=== PATIENT | male | born 1970 | race African-American/Black ===

== ENCOUNTER 2019-08-22 13:57 | Emergency (ER) | payer OTHER ==
--- NOTE | 2019-08-22 14:25 | EDM.PDOC ---
ED HPI GENERAL MEDICAL PROBLEM - General Chief Complaint: General Stated Complaint: RIB INJURY Time Seen by Provider: 08/22/19 14:02 Source of Information: Reports: Patient History Limitations: Reports: No Limitations - History of Present Illness INITIAL COMMENTS - FREE TEXT/NARRATIVE: HISTORY AND PHYSICAL: History of present illness: Patient is a 49-year-old male who presents to the ED today via private vehicle and ambulate into the ED today with concern of left-sided rib injury, neck pain , and headache after a fall that occurred just prior to arrival to the ED. 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 Patient states he slipped while standing in the truck bed and landed on his left side in the truck bed but hit his left ribs. Patient states he did not hit his head and did not lose consciousness but usually is having neck pain and headache after the incident. Patient states he has not taken anything for his symptoms. Patient states he has had prior broken ribs on the left side. Patient denies taking any blood thinners including daily aspirin Patient denies fever, chills, chest pain, shortness of breath, or cough. Denies neck stiff ness, change in vision, syncope, or near syncope. Denies nausea, vomiting, abdominal pain, diarrhea, constipation, or dysuria. Has not noted any blood in urine or stool. Patient has been eating and drinking appropriately. Review of systems: As per history of present illness and below otherwise all systems reviewed and negative. Past medical history: As per history of present illness and as reviewed below otherwise noncontributory. Surgical history: As per history of present illness and as reviewed below otherwise noncontributory. Social history: See social history for further information Family history: As per history of present illness and as reviewed below otherwise noncontributory. Physical exam: General: Patient is alert, oriented, and in no acute distress. Patient sitting comfortably on exam table. HEENT: Atraumatic, normocephalic, pupils equal and reactive bilaterally, negative for conjunctival pallor or scleral icterus, mucous membranes moist, TMs normal bilaterally, throat clear, neck supple, nontender, trachea midline. No drooling or trismus noted. No meningeal signs. No hot potato voice noted. Lungs: Clear to auscultation, breath sounds equal bilaterally. Mild tenderness to palpation of left sided ribs #7-10 without guarding. Heart: S1S2, regular rate and rhythm without overt murmur Abdomen: Soft, nondistended, nontender. Negative for masses or hepatosplenomegaly. Negative for costovertebral tenderness. Pelvis: Stable nontender. Genitourinary: Deferred. Rectal: Deferred. Skin: Intact, warm, dry. No lesions or rashes noted. Extremities: Atraumatic, negative for cords or calf pain. Neurovascular unremarkable. No obvious deformity of the complete spine. No step-offs, crepitus , or point tenderness to palpation of the complete spine. Neuro: Awake, alert, oriented. Cranial nerves II through XII unremarkable. Cerebellum unremarkable. Motor and sensory unremarkable throughout. Exam nonfocal. Notes: Discussed the importance for follow-up with the primary care provider. Voices understanding and is agreeable to plan of care. Denies any further questions or concerns at this time. Diagnostics: Head CT, cervical spine CT, rib with CXR, EKG, CBC, CMP, UA, troponin, lipase Therapeutics: None Prescription: None Impression: Left sided rib pain Neck pain Plan: 1. Rest, ice, elevate the affected areas. You can apply ice and or heat 15 minutes on, 15 minutes off. 2. Tylenol or ibuprofen as directed for pain management or discomfort. Take medication as prescribed. 3. Follow up with the primary care provider as discussed. Return to the ED as needed and as discussed. Definitive disposition and diagnosis as appropriate pending reevaluation and review of above. Left Rib Cage and Neck Pain Score (Numeric/FACES): 7 - Related Data Allergies Allergy/AdvReac Type Severity Reaction Status Date / Time amoxicillin Allergy Shortness Verified 08/22/19 14:16 of Breath doxycycline Allergy Rash Verified 08/22/19 14:16 ketorolac [From Toradol] Allergy Swelling Verified 08/22/19 14:16 Home Meds: Home Meds Citalopram [Citalopram HBr] 20 mg PO DAILY 08/22/19 [History] ED ROS GENERAL - Review of Systems Review Of Systems: Comprehensive ROS is negative, except as noted in HPI. ED EXAM, GENERAL - Physical Exam Exam: See Below (see dictation) Course - Vital Signs Last Recorded V/S: Last Vital Signs Temp 98.1 F 08/22/19 14:17 Pulse 79 08/22/19 14:17 Resp 18 08/22/19 14:17 BP 122/72 08/22/19 14:17 Pulse Ox 95 08/22/19 14:17 - Orders/Labs/Meds Orders: Active Orders 24 hr Category Date Time Status EKG Documentation Completion [RC] STAT Care 08/22/19 14:16 Active Labs: Laboratory Tests 08/22/19 08/22/19 08/22/19 Range/Units 14:40 14:40 14:45 WBC 6.42 (4.0-11.0) K/uL RBC 4.54 (4.50-5.90) M/uL Hgb 13.9 (13.0-17.0) g/dL Hct 37.6 L (38.0-50.0) % MCV 82.8 (80.0-98.0) fL MCH 30.6 (27.0-32.0) pg MCHC 37.0 (31.0-37.0) g/dL RDW Std Deviation 44.2 (28.0-62.0) fl RDW Coeff of [place] 15 (11.0-15.0) % Plt Count 173 (150-400) K/uL MPV 11.20 (7.40-12.00) fL Neut % (Auto) 30.5 L (48.0-80.0) % Lymph % (Auto) 58.4 H (16.0-40.0) % [place] % (Auto) 8.6 (0.0-15.0) % Eos % (Auto) 2.2 (0.0-7.0) % Baso % (Auto) 0.3 (0.0-1.5) % Neut # (Auto) 2.0 (1.4-5.7) K/uL Lymph # (Auto) 3.8 H (0.6-2.4) K/uL [place] # (Auto) 0.6 (0.0-0.8) K/uL Eos # (Auto) 0.1 (0.0-0.7) K/uL Baso # (Auto) 0.0 (0.0-0.1) K/uL Nucleated RBC % 0.0 /100WBC Nucleated RBCs # 0 K/uL Sodium 141 (136-148) mmol/L Potassium 4.1 (3.5-5.1) mmol/L Chloride 104 (98-107) mmol/L Carbon Dioxide 28.9 (21.0-32.0) mmol/L BUN 15 (7.0-18.0) mg/dL Creatinine 1.2 (0.8-1.3) mg/dL Est Cr Clr Drug Dosing 70.46 mL/min Estimated GFR (MDRD) > 60.0 ml/min Glucose 79 (74-106) mg/dL Calcium 8.7 (8.5-10.1) mg/dL Total Bilirubin 0.3 (0.2-1.0) mg/dL AST 18 (15-37) IU/L ALT 26 (14-63) IU/L Alkaline Phosphatase 57 (46-116) U/L Troponin I < 0.050 (0.000-0.056) ng/mL Total Protein 7.2 (6.4-8.2) g/dL Albumin 3.8 (3.4-5.0) g/dL Globulin 3.4 (2.6-4.0) g/dL Albumin/Globulin Ratio 1.1 (0.9-1.6) Lipase 105 (73-393) U/L Urine Color YELLOW Urine Appearance CLEAR Urine pH 7.0 (5.0-8.0) Ur Specific [place] 1.020 (1.001-1.035) Urine Protein NEGATIVE (NEGATIVE) mg/dL Urine Glucose (UA) NEGATIVE (NEGATIVE) mg/dL Urine Ketones NEGATIVE (NEGATIVE) mg/dL Urine Occult Blood NEGATIVE (NEGATIVE) Urine Nitrite NEGATIVE (NEGATIVE) Urine Bilirubin NEGATIVE (NEGATIVE) Urine Urobilinogen 0.2 (<2.0) EU/dL Ur Leukocyte Esterase NEGATIVE (NEGATIVE) Departure - Departure Time of Disposition: 15:34 Disposition: Home, Self-Care 01 Clinical Impression: Rib pain, Neck pain - Discharge Information Referrals: PCP,Unknown [Primary Care Provider] - Forms: ED Department Discharge Additional Instructions: The following information is given to patients seen in the emergency department who are being discharged to home. This information is to outline your options for follow-up care. We provide all patients seen in our emergency department with a follow-up referral. The need for follow-up, as well as the timing and circumstances, are variable depending upon the specifics of your emergency department visit. If you don't have a primary care physician on staff, we will provide you with a referral. We always advise you to contact your personal physician following an emergency department visit to inform them of the circumstance of the visit and for follow-up with them and/or the need for any referrals to a consulting specialist. The emergency department will also refer you to a specialist when appropriate. This referral assures that you have the opportunity for follow-up care with a specialist. All of these measure are taken in an effort to provide you with optimal care, which includes your follow-up. Under all circumstances we always encourage you to contact your private physician who remains a resource for coordinating your care. When calling for follow-up care, please make the office aware that this follow-up is from your recent emergency room visit. If for any reason you are refused follow-up, please contact the [facility] Emergency Department at and asked to speak to the emergency department charge nurse. [facility] [address] [place] [address] [place] [address] 1. Rest, ice, elevate the affected areas. You can apply ice and or heat 15 minutes on, 15 minutes off. 2. Tylenol or ibuprofen as directed for pain management or discomfort. Take medication as prescribed. 3. Follow up with the primary care provider as discussed. Return to the ED as needed and as discussed. Sepsis Event Note - Evaluation Sepsis Screening Result: No Definite Risk - Focused Exam Vital Signs: Vital Signs Temp Pulse Resp BP Pulse Ox 08/22/19 14:17 98.1 F 79 18 122/72 95 Date Exam was Performed: 08/22/19 Time Exam was Performed: 15:34 - My Orders Last 24 Hours: My Active Orders 08/22/19 14:16 EKG Documentation Completion [RC] STAT - Assessment/Plan Last 24 Hours: My Active Orders 08/22/19 14:16 EKG Documentation Completion [RC] STAT
[2019-08-22 15:17] LABS: BLOOD UREA NITROGEN,BUN 15 mg/dL (7.0-18.0); CARBON DIOXIDE,CO2 28.9 mmol/L (21.0-32.0); CHLORIDE,CL 104 mmol/L (98-107); GLUCOSE RANDOM 79 mg/dL (74-106); LIPASE 105 U/L (73-393); POTASSIUM,K 4.1 mmol/L (3.5-5.1); SODIUM,NA 141 mmol/L (136-148)
--- NOTE | 2019-08-22 15:29 | CR ---
Chest and left ribs: Frontal view of the chest was obtained as well as four views left ribs. Comparison: No prior chest or rib study. Heart size and mediastinum are normal. Lungs are clear. Deformity is noted within the left 9th and 10th ribs as well as 8th rib. Uncertain if these are acute or represent old healing rib fractures. No additional rib abnormality is appreciated. Impression: 1. Deformity of three mid left ribs. As mentioned above, uncertain if these are acute or old. Please correlate with patient's symptoms. 2. No additional rib abnormality is appreciated. 3. Nothing acute is seen on frontal chest x-ray. Diagnostic code #3 This report was dictated in [place] Standard Time MTDD
--- NOTE | 2019-08-22 15:30 | CT ---
Head CT Technique: Multiple axial sections through the brain were obtained. Intravenous contrast was not utilized. Comparison: No prior intracranial imaging. Findings: Ventricles along with basal cisterns and sulci over the convexities appear within normal limits for the patient's age. No abnormal parenchymal densities are seen. No evidence of intracranial hemorrhage. No midline shift or mass effect is seen. Bone window settings were reviewed which shows no acute calvarial abnormality. Mastoid sinuses are clear. Mild mucosal thickening is seen within the anterior right ethmoid and frontal sinus. No air-fluid level is seen within the visualized sinuses. Impression: 1. Slight sinus findings most likely chronic. 2. No acute intracranial abnormality is appreciated. Diagnostic code #2 This report was dictated in [place] Standard Time MTDD
--- NOTE | 2019-08-22 15:31 | CT ---
CT cervical spine Technique: Multiple axial sections through the cervical spine were obtained. Reconstructed sagittal and coronal images were reviewed. Comparison: No prior cervical spine imaging. Findings: Severe disc space narrowing at C5-C6 with posterior osteophytes. Mild disc space narrowing is noted at C6-7 and C7-T1 as well as C3-4. Vertebral body heights are maintained. Mild degenerative apophyseal change is scattered throughout the cervical spine and upper thoracic spine. Vacuum disc phenomena is seen within the L5-S1 disc. No fracture is identified. Mild right sided neural foraminal stenosis is noted at C5-6. Other neural foramina are patent. No abnormal subluxation is seen. Slight thoracic scoliosis is noted. Mild spurring is noted within the uncovertebral joints at C5-6 and minimally at C6-7. Impression: 1. Degenerative change as noted above. 2. Nothing acute is identified. Diagnostic code #2 This report was dictated in [place] Standard Time MTDD
== END 2019-08-22 15:45 | disposition home or self-care (01) ==
LOC: MW.ED 13:57
DX: R07.81 Pleurodynia (principal); M54.2 Cervicalgia; Z88.1 Allergy status to other antibiotic agents; Z88.8 Allergy status to other drugs, medicaments and biological substances
CPT/HCPCS: 36415; 70450; 70450-26; 71101-26-LT; 71101-LT; 72125; 72125-26; 80053; 81003; 83690; 84484; 85025; 93005; 99284; 99284-25

== ENCOUNTER 2019-09-09 10:34 | Emergency (ER) | payer OTHER ==
--- NOTE | 2019-09-09 11:16 | EDM.PDOC ---
ED HPI GENERAL MEDICAL PROBLEM - General Chief Complaint: Back Pain or Injury Stated Complaint: LOW BACK PAIN Time Seen by Provider: 09/09/19 10:46 - History of Present Illness INITIAL COMMENTS - FREE TEXT/NARRATIVE: HPI 49-year-old male smoker presents for evaluation of gradual onset bilateral paraspinal lumbar pain that began after standing from a bent over position while detailing a car yesterday. Pain is worsened by lower back extension/ flexion movements, relieved by rest. Patient reports that feels like a muscle cramp, has been refractory to ibuprofen and acetaminophen. Patient denies a history of recent trauma, fevers, chills, unexpected weight loss, decreased perineal sensation when toileting, difficulty urinating or incontinence, morning stiffness, IV drug use, alcoholism, recent invasive medical procedures, presyncope, abdominal pain, or dysuria. Anticoagulation: denies anticoagulation and Plavix, denies stents. M/S/F/SocHx notable for: please see HPI; remainder reviewed with patient and in chart. ROS: Negative constitutional, eye, cardiovascular, pulmonary, GI, , MSK, skin , neurologic, psychiatric, endocrine unless noted in the HPI. Exam HR 72, RR 18, BP 121/72, T 35.9C, SaO2 97% on room air. Gen: Pleasant, non-toxic appearing, resting comfortably. HEENT: NC, AT, PEERL, EOMI. Resp: clear to auscultation bilaterally. Card: RRR GI: ND, non-tender to palpation, no palpable midline masses, no palpable midline pulsatility. : No CVA tenderness bilaterally. MSK: No visible deformities, strength and tone WNL. No lower thoracic or lumbar spinal TTP, step offs or deformities. No paraspinal TTP. Skin: Normal color with no visible lesions. Neuro: alert and oriented 3, no facial asymmetry, vision and hearing WNL. Straight leg raise test - negative right, negative left. BLE distal sensation intact, 5/5 dorsiflexion / plantarflexion bilaterally. Gait: normal, narrow based gait, able to walk unassisted and stand on heels and toes with full apparent strength. Psych: Mood and affect appropriate. Focused Aortic Ultrasound Indication: Back PainAbdominal Pain Exam type (limited): Initial Views obtained: Transverse proximal aorta, Transverse mid aorta , Transverse distal aorta and Sagittal view aorta. Findings/Interpretation: No evidence of AAA in visualized areas of aorta AAA visualized: greatest measurement in transverse diameter: 1.82 cm at the proximal /mid/distal aorta. MDM Previous chart, nursing note, and vitals reviewed. A: 49-year-old male smoker presents for evaluation of gradual onset bilateral paraspinal lumbar pain that began after standing from a bent over position while detailing a car yesterday. DDx: muscle strain, muscle spasm, sciatica, lumbar radiculopathy, cauda equina syndrome, spinal cord abscess, vertebral osteomyelitis, vertebral diskitis, fracture, seronegative spondyloarthropathy, abdominal aortic aneurysm, abdominal aortic dissection, spontaneous hematoma, malignant spinal cord compression. Evaluation: * Cauda equina - consider unlikely given normal perineal sensation, lack of incontinence or urinary retention. * Infection - abscess, vertebral osteomyelitis, and diskitis are unlikely as the patient is immunocompetent and is with an absence of infectious signs and risk factors on ROS, and a lack of point tenderness. * Fracture - doubt given the absence of spinal TTP and lack of prior trauma * Seronegative spondyloarthropathy - unlikely, no further evaluation currently indicated given the absence of morning stiffness and negative RA, psoriatic arthritis, and autoimmune disease history. * AAA or Dissection - bedside ultrasound without evidence of clinically significant dilation, dissection was considered, but given the lack of abdominal pain, presyncope, and a strong alternative diagnosis, further evaluation is not currently indicated. * Spinal Metastases - given the unremarkable ROS, absence of point spinal tenderness on exam and the lack of discernible neurological deficit, no further testing regarding this etiology is currently indicated. * Consider muscle strain to be the most likely cause of the patients symptoms. Counseled patient regarding natural course of muscular skeletal back pain, given return to care instructions, and recommendation for primary care physician follow up. Discharged with RX for Flexeril instructions to take ibuprofen and acetaminophen. Impression: Back Pain. lower back Pain Score (Numeric/FACES): 7 - Related Data Allergies Allergy/AdvReac Type Severity Reaction Status Date / Time amoxicillin Allergy Shortness Verified 09/09/19 10:44 of Breath doxycycline Allergy Rash Verified 09/09/19 10:44 ketorolac [From Toradol] Allergy Swelling Verified 09/09/19 10:44 Home Meds: Home Meds Citalopram [Citalopram HBr] 20 mg PO DAILY 08/22/19 [History] Cyclobenzaprine [Flexeril] 5 mg PO TID PRN #12 tab 09/09/19 [Rx] Past Medical History HEENT History: Reports: None Cardiovascular History: Reports: None Respiratory History: Reports: COPD Gastrointestinal History: Reports: None Genitourinary History: Reports: None Musculoskeletal History: Reports: Arthritis Neurological History: Reports: None Psychiatric History: Reports: Anxiety, Depression Endocrine/Metabolic History: Reports: None Hematologic History: Reports: None Immunologic History: Reports: None Oncologic (Cancer) History: Reports: None Dermatologic History: Reports: None - Past Surgical History Head Surgeries/Procedures: Reports: None HEENT Surgical History: Reports: None Cardiovascular Surgical History: Reports: None Respiratory Surgical History: Reports: None GI Surgical History: Reports: None Male Surgical History: Reports: None Endocrine Surgical History: Reports: None Neurological Surgical History: Reports: None Musculoskeletal Surgical History: Reports: None Oncologic Surgical History: Reports: None Dermatological Surgical History: Reports: None Social & Family History - Family History Family Medical History: Noncontributory - Tobacco Use Smoking Status *Q: Current Every Day Smoker Years of Tobacco use: 29 Packs/Tins Daily: 0.5 - Caffeine Use Caffeine Use: Reports: Coffee, Tea - Recreational Drug Use Recreational Drug Use: No ED ROS GENERAL - Review of Systems Review Of Systems: See Below ED EXAM, GENERAL - Physical Exam Exam: See Below Course - Vital Signs Last Recorded V/S: Last Vital Signs Temp 35.9 C 09/09/19 10:46 Pulse 72 09/09/19 10:46 Resp 18 09/09/19 10:46 BP 121/72 09/09/19 10:46 Pulse Ox 97 09/09/19 10:46 Departure - Departure Time of Disposition: 11:14 Disposition: Home, Self-Care 01 Clinical Impression: Back pain - Discharge Information Prescriptions: Cyclobenzaprine [Flexeril] 5 mg PO TID PRN #12 tab PRN Reason: pain Referrals: Gio Malin NP [Primary Care Provider] - Additional Instructions: You were in seen in the [facility] Emergency Department for evaluation of back pain. Please read and follow all of the instructions below. Please follow up with your primary care physician in 4-5 days if you still have symptoms. When calling for follow-up care, please make the office aware that this follow-up is from your recent emergency room visit. If for any reason you are refused follow-up, please contact the [facility] Emergency Department at and asked to speak to the emergency department charge nurse. Your care today was limited to identifying and treating emergent medical problems only. Many people have subtle differences in their test results that require follow up with their outpatient physician(s) to correctly determine if this represents a normal variation or concerning abnormality with respect to your specific health. The care given to you today was limited to identifying and treating emergent medical problems - you need to request a copy of all of your medical records from today's visit and follow up with your outpatient physician(s) to review both today's visit and your overall health. If you have any new symptoms or if you are at all concerned about your health please return immediately to the emergency department. Prescriptions: If you are uninsured or have financial difficulties with filling your prescription(s), you may consider using a free pharmacy discount service such as [employer] ([employer]) or [employer] ([employer]). These services allow you to search for a medication on your phone (or computer) and obtain a coupon that usually has a significant discount from the list olguin at a pharmacy. Your physician as well as [facility] does not have a financial relationship with either of these services. You may also wish to speak with your physician to determine if lower cost prescriptions are possible. Obtaining primary care: 1. [facility] provides pediatrics (children), family medicine (children, adults, and some obstetrical care), and internal medicine (adults). Further specialty care is also available. Same day appointments are available. They may be contacted at [phone] and are open Sunday through Sunday 8 AM to 5 PM. The [facility] are located at [facility], [address] [place] [address]. 2. [facility] offers family medicine, internal medicine, womens health, and further specialty care. [facility] may be contacted at [phone]. [facility] is located at [address] [place], [address]. 3. If you have health insurance, please also contact your insurer for a list of accepting providers under your policy, you may contact these providers for further health care. Occupational health: Work related injuries may consider following up with [facility], . Occupational health services are located at [address] [place] [address] and are open Sunday through Sunday from 7: 30 am to 5:00 pm. Obstetrical and Gynecological Care: [facility], , Sunday through Sunday 8 AM to 5 PM. [address] [place] [address]. Eyecare: If you have an eye injury you should follow up with your business services sales agent or with [facility], at [phone] or [phone] , they are located at [address] [place] [address]. Dental Care Asa Ramírez DDS. [address] [facility].[place], [place]. Ph. [phone] Henrry Ramírez DDS MS. [address] [facility] [address], [place], [place]. Ph. [phone] Jace Hart DDS. [address] [place] [address]. Ph. [phone] George Cheng DDS. [address] [facility] [address] [place], [place]. Ph. [phone] David Marinelli DDS PC. [address] [facility] [address] [place], [place]. Ph. Radha Renee DDS. [address] [facility]. Ph. [phone] [facility]. [address] [place], [place]. Ph. [phone] [facility]. [address] [place] [address], [place], [place]. Ph. [phone] [facility] [address] [place] [phone]. Ph. [facility]. [address] [place] [address] [address] [place], [place]. Ph. [facility]. [address] [place]. Ph. [phone] Back Pain You were evaluated today in the emergency department for your back pain. Your pain is believed to be caused by muscle stains and spasms. This type of pain can be very severe, but it is almost never serious. * You may take ibuprofen 600 mg every 6 to 8 hours as needed for pain. You may take acetaminophen 1000 mg every 8 hours in addition to the ibuprofen for further pain relief. Both of these medications provide very good reduction in pain with minimal side effects. Do not take this ibuprofen if you are or allergic to ibuprofen, Motrin, Aleve, or Naproxen. Do not take acetaminophen if you are allergic to Tylenol or acetaminophen. If you have liver disease you may take up to 2000 mg of acetaminophen per day. * Call your primary care physician to schedule a follow up appointment. Many people have pain that lasts beyond the length of the medications prescribed in the emergency department. You may also benefit from physical therapy, lifestyle changes, and further evaluation. Please return to the emergency department if you develop any of the following: * Pain on your spine (on the bones) * Have numbness or weakness in your legs * Have problems with bowel or bladder control * Have decreased sensation in your groin or at your anus * Have unexplained weight loss * Have a fever or feel sick in other ways * If you have pain that is so severe that you cannot perform simple tasks * If you are otherwise concerned about your health Please follow up with your primary care physician if you still have pain after 4 -5 days. What causes low back pain? In most cases, doctors and nurses do not know what causes low back pain. Pain can happen if you strain a muscle or hurt a tendon or ligament. But if that is the cause of your pain, doctors and nurses have no way of knowing it for sure. Pain can also happen if you have: * Damaged, bulging, or torn discs * Arthritis affecting the joints of the spine * Bony growths on the vertebrae that crowd nearby nerves * A vertebra out of place * Narrowing in the spinal canal * A tumor or infection (but this is very rare) Should I get an imaging test, like an MRI? Most people do not need an imaging test. Most cases of back pain go away within 4 to 6 weeks or in even less time. Doctors and nurses usually do not order imaging tests before then unless there are signs of something unusual. * If your doctor or nurse does not order an imaging test, do not worry. He or she can still learn a lot about your pain just from looking you over and talking with you. Plus, treatment can start right away, even without an imaging test. * How can the doctor or nurse tell what is wrong just by talking to me? Your symptoms tell your doctor or nurse a lot about the cause of your pain. If your pain spreads down the back of one thigh, for instance, that could be a sign that one of the nerves that go to your leg is being pinched by a bulging or torn disc. If, on the other hand, your pain goes all the way down both legs, that could be a sign that you have bony growths on your spine. * What can I do to feel better? The best thing you can do is to stay as active as possible even if you are in pain. People with low back pain recover faster if they stay active. Walk as much as you can. If you stopped working because of your pain, try to get back to your normal routine soon. But do not overdo it. * When you start to feel better, ask your doctor or nurse about exercises that can help strengthen your back. These exercises can help you get better faster and might make it less likely that you will have pain again. How is back pain treated? A small number of people end up needing surgery to treat back pain. But most people do well with simpler treatments, such as: * Physical therapy to teach you special exercises and stretches * Injections of medicines that numb the back or reduce swelling * What can I do to keep from getting back pain again? Stay active, maintain a healthy body weight and learn exercises that help strengthen and stretch your back. Learn to lift using your legs instead of your back. And avoid sitting or standing in the same position for too long. You make take over the counter Acetaminophen (Tylenol) and Ibuprofen (Motrin or Aleve) as directed below for relief of pain. * You can take these medications at the same time or on separate schedules. * Do not take for more than 10 days. * Do not take with alcohol or other acetaminophen containing medications. * This medication may cause a mildly upset stomach, if so take it with a small snack. Stop taking it if you have persistent abdominal pain, heartburn, or any stomach pain. Do not take this medication if you have known ulcers. * Please read the warnings at the end of this document regarding these medications. Ibuprofen (Brand Names: Motrin, Advil) Take 600 mg with a glass of water every 6 to 8 hours as needed for pain or fever. Do not take for more than 10 days. This medication may cause a mildly upset stomach, if so take it with a small snack. Stop taking it if you have persistent abdominal pain, heartburn, or any stomach pain. Do not take this medication if you have known ulcers. Do not take with Naproxen Sodium (brand name: Aleve) or other non-steroidal antiiflammatory medications that you may be prescribed (e.g. Diclofenac, Etodolac, Indomethicin) WARNING: This drug may infrequently cause serious (rarely fatal) bleeding from the stomach or intestines. Also, related drugs rarely have caused blood clots to form, resulting in heart attacks and strokes. This medication might also rarely cause similar problems. Talk to your doctor or pharmacist about the benefits and risks of treatment, as well as other possible medication choices. If you notice any of the following rare but very serious side effects, stop taking ibuprofen and seek immediate medical attention: black stools, persistent stomach/abdominal pain, vomit that looks like coffee grounds, chest pain, weakness on one side of the body, sudden vision changes, slurred speech. SIDE EFFECTS: Upset stomach, nausea, vomiting, heartburn, headache, diarrhea, constipation, drowsiness, and dizziness may occur. If any of these effects persist or worsen, notify your doctor or pharmacist promptly. If your doctor has directed you to use this medication, remember that he or she has judged that the benefit to you is greater than the risk of side effects. Many people using this medication do not have serious side effects. Tell your doctor immediately if any of these serious side effects occur: stomach pain, swelling of the hands or feet, sudden or unexplained weight gain, ringing in the ears ( tinnitus). Tell your doctor immediately if any of these unlikely but serious side effects occur: vision changes, rapid or pounding heartbeat, easy bruising or bleeding, difficult/painful swallowing. Tell your doctor immediately if any of these highly unlikely but very serious side effects occur: change in amount of urine, severe headache, very stiff neck, mental/mood changes, persistent sore throat or fever. This drug may rarely cause serious (possibly fatal) liver disease. If you notice any of the following highly unlikely but very serious side effects, stop taking ibuprofen and consult your doctor or pharmacist immediately: yellowing eyes and skin, dark urine, unusual/extreme tiredness. An allergic reaction to this drug is unlikely, but seek immediate medical attention if it occurs. Symptoms of an allergic reaction include: rash, itching/ swelling (especially of the face/tongue/throat), severe dizziness, trouble breathing. This is not a complete list of possible side effects. DRUG INTERACTIONS: Your healthcare professionals (e.g., doctor or pharmacist) may already be aware of any possible drug interactions and may be monitoring you for it. Do not start, stop or change the dosage of any medicine before checking with them first. This drug should not be used with the following medications because very serious interactions may occur: cidofovir, ketorolac. If you are currently using any of these medications listed above, tell your doctor or pharmacist before starting ibuprofen. Before using this medication, tell your doctor or pharmacist of all prescription and nonprescription/herbal products you may use, especially of: anti-platelet drugs (e.g., cilostazol, clopidogrel), oral bisphosphonates (e.g., alendronate), other medications for arthritis (e.g., aspirin, methotrexate), "blood thinners" (e.g., enoxaparin, heparin, warfarin), corticosteroids (e.g., prednisone), cyclosporine, desmopressin, high blood pressure drugs (including KAITLYNN inhibitors such as captopril, angiotensin II receptor antagonists such as losartan, and beta- blockers such as metoprolol), lithium, pemetrexed, "water pills" (diuretics such as furosemide, hydrochlorothiazide, triamterene). Check all prescription and nonprescription medicine labels carefully for other pain/fever drugs ( NSAIDs such as aspirin, celecoxib, naproxen). These drugs are similar to ibuprofen, so taking one of these drugs while also taking ibuprofen may increase your risk of side effects. Consult your doctor or pharmacist for more details. However, if your doctor has prescribed low doses of aspirin to prevent heart attack or stroke (usually at dosages of 81-325 milligrams a day), you should continue to take the aspirin. Daily use of ibuprofen may decrease aspirin 's ability to prevent heart attack/stroke. Talk to your doctor about using a different medication (e.g., acetaminophen) to treat pain/fever. If you must take ibuprofen, talk to your doctor about possibly taking immediate-release aspirin (not enteric-coated) while also taking the ibuprofen dose apart from your aspirin dose. Do not increase your daily dose of aspirin or change the way you take aspirin/other medications without your doctor's approval. This document does not contain all possible interactions. Therefore, before using this product, tell your doctor or pharmacist of all the products you use. Keep a list of all your medications with you, and share the list with your doctor and pharmacist. Acetaminophen (Tylenol) Please take 1,000 mg every 6 hours as needed for pain. Do no use with alcohol or other acetaminophen containing medications. SIDE EFFECTS: This drug usually has no side effects. If you do not have liver problems, the maximum dose of acetaminophen for adults is 4 grams per day (4000 milligrams). Taking more than the maximum daily amount may cause serious ( possibly fatal) liver damage. Get medical help right away if you have any of the following symptoms of liver damage: persistent nausea/vomiting, extreme tiredness, stomach/abdominal pain, yellowing eyes/skin, dark urine. If you have liver problems, consult your doctor or pharmacist for a safe dosage of this medication. A very serious allergic reaction to this drug is rare. However, get medical help right away if you notice any symptoms of a serious allergic reaction, including: rash, itching/swelling (especially of the face/tongue/ throat), severe dizziness, trouble breathing. This is not a complete list of possible side effects. If you notice other effects not listed above, contact your doctor or pharmacist. Sepsis Event Note - Evaluation Sepsis Screening Result: No Definite Risk - Focused Exam Vital Signs: Vital Signs Temp Pulse Resp BP Pulse Ox 09/09/19 10:46 35.9 C 72 18 121/72 97 Date Exam was Performed: 09/09/19 Time Exam was Performed: 11:14
== END 2019-09-09 11:27 | disposition home or self-care (01) ==
LOC: MW.ED 10:34
CPT/HCPCS: 99283; 99284

== ENCOUNTER 2020-01-11 10:18 | Emergency (ER) | payer OTHER ==
--- NOTE | 2020-01-11 10:43 | EDM.PDOC ---
ED HPI GENERAL MEDICAL PROBLEM - General Chief Complaint: ENT Problem Stated Complaint: EYE AND THROAT COMPLAINT Time Seen by Provider: 01/11/20 10:20 Source of Information: Reports: Patient History Limitations: Reports: No Limitations - History of Present Illness INITIAL COMMENTS - FREE TEXT/NARRATIVE: HISTORY AND PHYSICAL: History of present illness: Patient is a 49-year-old male who presents to the emergency room with complaints of right eye drainage and sore throat. He states approximately a week and a half ago he had a stye to his right upper lid which he had apply gentle heat and had noticed some drainage. He states the stye has "pretty much resolved" but was concerned if there was drainage that he could pass this onto his coworkers. He has no visual changes, no ocular pain and currently has no drainage from either eye. He also reports he has had a sore throat for approximately 1 week. He has been using [id number] medications without much relief. Patient denies any fever, chills, headache, change in vision, syncope or near syncope. Denies any chest pain, back pain, shortness of breath or cough. Denies any GI or symptoms. Patient has been eating and drinking appropriately. Review of systems: As per history of present illness and below otherwise all systems reviewed and negative. Past medical history: As per history of present illness and as reviewed below otherwise noncontributory. Surgical history: As per history of present illness and as reviewed below otherwise noncontributory. Social history: See social history for further information Family history: As per history of present illness and as reviewed below otherwise noncontributory. Physical exam: General: Well-developed and well-nourished 49-year-old -Turkish male. Alert and oriented. Nontoxic-appearing and in no acute distress. HEENT: Atraumatic, normocephalic, pupils equal and reactive bilaterally, negative for conjunctival pallor or scleral icterus, mucous membranes moist, TMs normal bilaterally, throat erythematous without exudate or soft tissue swelling, neck supple, nontender, trachea midline. No drooling or trismus noted. No meningeal signs. No hot potato voice noted. Lungs: Clear to auscultation, breath sounds equal bilaterally, chest nontender. Heart: S1S2, regular rate and rhythm without overt murmur Abdomen: Soft, nondistended, nontender. Negative for masses or hepatosplenomegaly. Negative for costovertebral tenderness. Skin: Intact, warm, dry. No lesions or rashes noted. Extremities: Atraumatic, moves all extremities per self without difficulty or deficits, negative for cords or calf pain. Neurovascular unremarkable. Neuro: Awake, alert, oriented. Cranial nerves II through XII unremarkable. Cerebellum unremarkable. Motor and sensory unremarkable throughout. Exam nonfocal. Notes: Visual acuity is within normal limits. He does not wear contact lenses or glasses. My fluorescein eye exam shows no corneal abrasion or foreign body. We discussed good hygiene and handwashing. Patient does have multiple antibiotic allergies, will give Z-Matthew for the pharyngitis. Supportive care measures were reviewed and discussed. Voices understanding and is agreeable to plan of care. Denies any further questions or concerns at this time. Diagnostics: None Therapeutics: None Prescription: Zpak Impression: Pharyngitis Plan: 1. Take your medication as directed. Good handwashing and contact precautions as we discussed. 2. Warm Salt water gargles (rinse and spit) 3-4 x daily. Please get a new tooth brush after completion of your medication 3. Tylenol and or ibuprofen as needed for pain management. 4. Follow-up with your primary care provider in the next 1-2 days. Return to the ED as needed and as discussed. Definitive disposition and diagnosis as appropriate pending reevaluation and review of above. Throat Pain Score (Numeric/FACES): 5 - Related Data Allergies Allergy/AdvReac Type Severity Reaction Status Date / Time amoxicillin Allergy Shortness Verified 01/11/20 10:26 of Breath doxycycline Allergy Rash Verified 01/11/20 10:26 ketorolac [From Toradol] Allergy Swelling Verified 01/11/20 10:26 Home Meds: Home Meds Citalopram [Citalopram HBr] 20 mg PO DAILY 08/22/19 [History] Azithromycin [Zithromax] 1 dose PO DAILY 5 Days #6 tab 01/11/20 [Rx] Omeprazole 20 mg PO DAILY 01/11/20 [History] Past Medical History - Past Health History Medical/Surgical History: Denies Medical/Surgical History HEENT History: Reports: None Cardiovascular History: Reports: None Respiratory History: Reports: COPD, Other (See Below) Other Respiratory History: Collapsed Left Lung from rib fractures Gastrointestinal History: Reports: None Genitourinary History: Reports: None Musculoskeletal History: Reports: Arthritis Neurological History: Reports: None Psychiatric History: Reports: Anxiety, Depression Endocrine/Metabolic History: Reports: None Hematologic History: Reports: None Immunologic History: Reports: None Oncologic (Cancer) History: Reports: None Dermatologic History: Reports: None - Infectious Disease History Infectious Disease History: Reports: None - Past Surgical History Head Surgeries/Procedures: Reports: None HEENT Surgical History: Reports: None Cardiovascular Surgical History: Reports: None Respiratory Surgical History: Reports: None GI Surgical History: Reports: None Male Surgical History: Reports: None Endocrine Surgical History: Reports: None Neurological Surgical History: Reports: None Musculoskeletal Surgical History: Reports: None Oncologic Surgical History: Reports: None Dermatological Surgical History: Reports: None Social & Family History - Family History Family Medical History: Noncontributory - Tobacco Use Smoking Status *Q: Current Every Day Smoker Years of Tobacco use: 31 Packs/Tins Daily: 1 Used Tobacco, but Quit: No Second Hand Smoke Exposure: Yes - Caffeine Use Caffeine Use: Reports: Coffee, Soda - Alcohol Use Days Per Week of Alcohol Use: 2 Number of Drinks Per Day: 6 Total Drinks Per Week: 12 - Recreational Drug Use Recreational Drug Use: No Drug Use in Last 12 Months: No ED ROS ENT - Review of Systems Review Of Systems: Comprehensive ROS is negative, except as noted in HPI. ED EXAM, ENT - Physical Exam Exam: See Below (See dictation) Course - Vital Signs Last Recorded V/S: Last Vital Signs Temp 96.7 F L 01/11/20 10:27 Pulse 64 01/11/20 10:27 Resp 16 01/11/20 10:27 BP 128/85 01/11/20 10:27 Pulse Ox 96 01/11/20 10:27 Departure - Departure Time of Disposition: 10:43 Disposition: Home, Self-Care 01 Clinical Impression: Pharyngitis Qualifiers: Pharyngitis/tonsillitis etiology: unspecified etiology Qualified Code(s): J02.9 - Acute pharyngitis, unspecified - Discharge Information Prescriptions: Azithromycin [Zithromax] 1 dose PO DAILY 5 Days #6 tab Instructions: Pharyngitis, [id number] Referrals: Gio Malin [employer] [Primary Care Provider] - Forms: ED Department Discharge Additional Instructions: The following information is given to patients seen in the emergency department who are being discharged to home. This information is to outline your options for follow-up care. We provide all patients seen in our emergency department with a follow-up referral. The need for follow-up, as well as the timing and circumstances, are variable depending upon the specifics of your emergency department visit. If you don't have a primary care physician on staff, we will provide you with a referral. We always advise you to contact your personal physician following an emergency department visit to inform them of the circumstance of the visit and for follow-up with them and/or the need for any referrals to a consulting specialist. The emergency department will also refer you to a specialist when appropriate. This referral assures that you have the opportunity for follow-up care with a specialist. All of these measure are taken in an effort to provide you with optimal care, which includes your follow-up. Under all circumstances we always encourage you to contact your private physician who remains a resource for coordinating your care. When calling for follow-up care, please make the office aware that this follow-up is from your recent emergency room visit. If for any reason you are refused follow-up, please contact the [facility] Emergency Department at and asked to speak to the emergency department charge nurse. [facility] [address] [place] [id number] [place] [address] 1. Take your medication as directed. Good handwashing and contact precautions as we discussed. 2. Warm Salt water gargles (rinse and spit) 3-4 x daily. Please get a new tooth brush after completion of your medication 3. Tylenol and or ibuprofen as needed for pain management. 4. Follow-up with your primary care provider in the next 1-2 days. Return to the ED as needed and as discussed. Sepsis Event Note - Evaluation Sepsis Screening Result: No Definite Risk - Focused Exam Vital Signs: Vital Signs Temp Pulse Resp BP Pulse Ox 01/11/20 10:27 96.7 F L 64 16 128/85 96 Date Exam was Performed: 01/11/20 Time Exam was Performed: 10:44
== END 2020-01-11 10:47 | disposition home or self-care (01) ==
LOC: MW.ED 10:18
CPT/HCPCS: 99282

== ENCOUNTER 2021-04-07 11:46 | Emergency (ER) | payer OTHER ==
[2021-04-07] MEDS ORDERED: diphenhydrAMINE 50 MG Cap PO ONE (12:18)
--- NOTE | 2021-04-07 12:21 | EDM.PDOC ---
ED HPI GENERAL MEDICAL PROBLEM - General Chief Complaint: Allergic Reaction Stated Complaint: REACTION TO DYE Time Seen by Provider: 04/07/21 12:10 - History of Present Illness INITIAL COMMENTS - FREE TEXT/NARRATIVE: Patient presents with concern for allergic reaction after IV contrast for CT scan. At about 10 AM patient had IV contrast and after that he noticed some mosquito bite type lesions over his thoracoabdominal area and then some swelling in the left side of his mouth so he came to the emergency department. Slight lightheadedness. Patient denies any difficulty with breathing. Patient does have allergy to antibiotics to osbaldo and doxycycline. - Related Data Allergies Allergy/AdvReac Type Severity Reaction Status Date / Time amoxicillin Allergy Shortness Verified 04/07/21 12:09 of Breath doxycycline Allergy Rash Verified 04/07/21 12:09 Iodinated Contrast Media Allergy Hives Verified 04/07/21 12:09 ketorolac [From Toradol] Allergy Swelling Verified 04/07/21 12:09 Home Meds: Home Meds Citalopram [Citalopram HBr] 20 mg PO DAILY 08/22/19 [History] Omeprazole 20 mg PO DAILY 01/11/20 [History] Past Medical History - Past Health History Medical/Surgical History: Denies Medical/Surgical History HEENT History: Reports: None Cardiovascular History: Reports: None Respiratory History: Reports: COPD, Other (See Below) Other Respiratory History: Collapsed Left Lung from rib fractures Gastrointestinal History: Reports: None Genitourinary History: Reports: None Musculoskeletal History: Reports: Arthritis Neurological History: Reports: None Psychiatric History: Reports: Anxiety, Depression Endocrine/Metabolic History: Reports: None Hematologic History: Reports: None Immunologic History: Reports: None Oncologic (Cancer) History: Reports: None Dermatologic History: Reports: None - Infectious Disease History Infectious Disease History: Reports: None - Past Surgical History Head Surgeries/Procedures: Reports: None HEENT Surgical History: Reports: None Cardiovascular Surgical History: Reports: None Respiratory Surgical History: Reports: None GI Surgical History: Reports: None Male Surgical History: Reports: None Endocrine Surgical History: Reports: None Neurological Surgical History: Reports: None Musculoskeletal Surgical History: Reports: None Oncologic Surgical History: Reports: None Dermatological Surgical History: Reports: None Social & Family History - Family History Family Medical History: No Pertinent Family History - Tobacco Use Tobacco Use Status *Q: Never Tobacco User - Caffeine Use Caffeine Use: Reports: None - Recreational Drug Use Recreational Drug Use: No ED ROS ALLERGIC REACTION - Review of Systems Review Of Systems: See Below Constitutional: Denies: Fever Respiratory: Denies: Shortness of Breath, Wheezing Cardiovascular: Reports: Lightheadedness Skin: Reports: Rash ED EXAM GENERAL NO PERIP PULSE - Physical Exam Exam: See Below Text/Narrative:: CONSTITUTIONAL: well appearing in no acute distress SKIN: Warm, dry, and intact without rash. There is no evidence of urticaria HENT: Normocephalic, atraumatic,. Patient's voice is normal. No objective swelling to the lip or tongue or soft palate PULMONARY: clear to ausculation bilaterally. No rales, rhonchi, wheezing CARDIOVASCULAR: regular rate, No murmur, rubs, or gallops GASTROINTESTINAL: soft, nondistended, nontender NEUROLOGIC: normal speech, II-XII intact. light touch/5/5 power equal and symmetric in upper and lower extremities without deficit MUSCULOSKELETAL: no gross deformities, atraumatic PSYCHIATRIC: normal mood and affect Course - Vital Signs Text/Narrative:: Allergic reaction, infection, angioedema, anaphylaxis, medication side effect, other Patient presents with symptoms as outlined above. Objectively there is no external overt evidence of allergic reaction at this time. Patient did receive Benadryl. It is about 3 hours since the allergen exposure. Supportive care with return precautions discussed Last Recorded V/S: Last Vital Signs Temp 36.0 C L 04/07/21 12:10 Pulse 77 04/07/21 12:10 Resp 16 04/07/21 12:10 BP 122/67 04/07/21 12:10 Pulse Ox 99 04/07/21 12:10 - Orders/Labs/Meds Meds: Medications Discontinued Medications Generic Name Dose Route Start Last Admin Trade Name Nicolas PRN Reason Stop Dose Admin Diphenhydramine HCl 50 mg 04/07/21 12:18 04/07/21 12:35 Diphenhydramine 50 Mg Cap PO 04/07/21 12:19 50 mg ONETIME ONE Administration Departure - Departure Time of Disposition: 12:54 Disposition: Left Without Being Seen 07 Condition: Good Clinical Impression: Allergic reaction - Discharge Information Instructions: Allergies, Adult Referrals: Gio Malin [employer] [Primary Care Provider] - Forms: ED Department Discharge Additional Instructions: Return for increased swelling to the lip, difficulty with breathing, tightness of the throat, lightheadedness, change or worsening condition. Use Benadryl 3-4 times a day for the next 3 days. The following information is given to patients seen in the emergency department who are being discharged to home. This information is to outline your options for follow-up care. We provide all patients seen in our emergency department with a follow-up referral. The need for follow-up, as well as the timing and circumstances, are variable depending upon the specifics of your emergency department visit. If you don't have a primary care physician on staff, we will provide you with a referral. We always advise you to contact your personal physician following an emergency department visit to inform them of the circumstance of the visit and for follow-up with them and/or the need for any referrals to a consulting specialist. The emergency department will also refer you to a specialist when appropriate. This referral assures that you have the opportunity for follow-up care with a specialist. All of these measure are taken in an effort to provide you with optimal care, which includes your follow-up. Primary care clinics in the area: [facility] - [facility] [address] [place] [address] [facility] [address] [place] [id number] Under all circumstances we always encourage you to contact your private physician who remains a resource for coordinating your care. When calling for follow-up care, please make the office aware that this follow-up is from your recent emergency room visit. If for any reason you are refused follow-up, please contact the [facility] Emergency Department at and asked to speak to the emergency department charge nurse. Sepsis Event Note (ED) - Evaluation Sepsis Screening Result: No Definite Risk - Focused Exam Vital Signs: Vital Signs Temp Pulse Resp BP Pulse Ox 04/07/21 12:10 36.0 C L 77 16 122/67 99
== END 2021-04-07 13:14 | disposition home or self-care (01) ==
LOC: MW.ED 11:46
DX: R22.0 Localized swelling, mass and lump, head (principal); T50.8X5A Adverse effect of diagnostic agents, initial encounter; J44.9 Chronic obstructive pulmonary disease, unspecified; Z88.0 Allergy status to penicillin; Z88.1 Allergy status to other antibiotic agents; Z91.041 Radiographic dye allergy status; Z88.6 Allergy status to analgesic agent; Z79.899 Other long term (current) drug therapy
CPT/HCPCS: 99283; A9270